=== PATIENT | female | born 1950 | race Caucasian/White ===

== ENCOUNTER 2020-01-08 11:42 | Outpatient (CLI) | payer MEDICARE, SELFPAY ==
[2020-01-08 12:32] LABS: Alanine Aminotransferase 47 U/L (4-35); Albumin Level 3.9 g/dL (3.5-5.1); Alkaline Phosphatase 56 U/L (38-126); Aspartate Amino Transferase 40 U/L (14-36); Bilirubin,Total 0.6 mg/dL (0.2-1.3); Blood Urea Nitrogen 16 mg/dL (7-17); Calcium 9.1 mg/dL (8.4-10.2); Carbon Dioxide 30 mmol/L (22-30); Chloride 101 mmol/L (98-107); Cholesterol 179 mg/dL (0-200); Estimated Glomerular Filt Rate > 60; Glucose 111 mg/dL (65-105); HDL Direct 53 mg/dL; Potassium 3.7 mmol/L (3.4-5.0); Sodium 139 mmol/L (137-145); Triglycerides 173 mg/dL (<150)
[2020-01-08 12:33] LABS: Hemoglobin A1C 6.4 % (<5.7)
[2020-01-08 12:43] LABS: LDL Cholesterol Direct 83 mg/dL
[2020-01-08 12:45] LABS: Iron 54 ug/dL (37-170)
[2020-01-08 12:54] LABS: Percent Iron Saturation 14 % (20-50)
== END 2020-01-08 11:43 | disposition home or self-care (01) ==
PROVIDERS: PCP Internal Medicine; Visit Provider Internal Medicine
DX: I10 Essential (primary) hypertension (principal); R73.09 Other abnormal glucose; Z79.899 Other long term (current) drug therapy; R79.0 Abnormal level of blood mineral; E78.2 Mixed hyperlipidemia; E03.9 Hypothyroidism, unspecified
CPT/HCPCS: 36415; 80053; 80061; 83036; 83540; 83550; 84443

== ENCOUNTER 2020-12-12 15:23 | Outpatient (CLI) | payer MEDICARE, SELFPAY ==
[2020-12-12 15:55] LABS: Alanine Aminotransferase 48 U/L (4-35); Alkaline Phosphatase 57 U/L (38-126); Anion Gap 7 mmol/L (8-16); Aspartate Amino Transferase 45 U/L (14-36); Bilirubin,Total 0.8 mg/dL (0.2-1.3); Blood Urea Nitrogen 18 mg/dL (7-17); Calcium 9.1 mg/dL (8.4-10.2); Carbon Dioxide 28 mmol/L (22-30); Chloride 104 mmol/L (98-107); Cholesterol 160 mg/dL (0-200); Estimated Glomerular Filt Rate > 60; Glucose 130 mg/dL (65-105); HDL Direct 59 mg/dL; Potassium 3.9 mmol/L (3.4-5.0); Sodium 139 mmol/L (137-145); Triglycerides 134 mg/dL (<150)
[2020-12-12 15:59] LABS: Hemoglobin A1C 6.6 % (<5.7)
[2020-12-12 16:06] LABS: LDL Cholesterol Direct 70 mg/dL
[2020-12-12 16:48] LABS: Free T4 Free Thyroxine 1.22 ng/mL (0.78-2.19)
== END 2020-12-12 15:24 | disposition home or self-care (01) ==
LOC: ANHLAB 15:25
PROVIDERS: Family Provider Internal Medicine; PCP Internal Medicine; Visit Provider Nurse Practitioner
DX: E78.5 Hyperlipidemia, unspecified (principal); E03.9 Hypothyroidism, unspecified; R73.03 Prediabetes
CPT/HCPCS: 36415; 80053; 80061; 83036; 84439; 84443

== ENCOUNTER 2021-04-20 13:29 | Emergency (ER) | payer MEDICARE, SELFPAY ==
[2021-04-20 13:41] VITALS: BP 112/60; PULSE 86; RESP 20; TEMP 37.3; O2SAT 99
--- NOTE | 2021-04-20 14:17 | ED.GENADULT ---
HPI - General Adult General Chief complaint: Extremity Problem,Nontraumatic Stated complaint: Rt ankle Source: patient Mode of arrival: ambulatory Limitations: no limitations History of Present Illness HPI narrative: Patient presents for evaluation of right lower extremity pain for the last 3 weeks. She indicates she was sitting in a chair with her legs crossed when she noted pain and bruising in right ankle. She cannot identify any specific trauma to the affected area. However she does state that she has been moving recently and may have injured herself without being cognizant of that. The course last week she has felt pain radiating up the posterior aspect of the right lower extremity. Of note she states that she has a history of a DVT which was identified when she was hospitalized for a lung transplant at [facility] approximately 7 years ago. Unfortunately she is unsure of which leg the clot is in. She has experienced some shortness of breath as of late but states she is planning on speaking with her physical therapy instructor this coming week about that. She reports a history of cardiac ablation, which sounds as though was performed due to atrial fibrillation. She states that pain in the right ankle is rated 7 out of 10 in severity and pain in the posterior aspect of the calf and thigh is 3/10. Currently anticoagulated with Eliquis and states she is compliant with therapy. She denies any chest pain or cough. Related Data Home Medications Medication Instructions Recorded Confirmed apixaban 5 mg tablet 5 mg PO BID 11/03/19 04/20/21 azathioprine 50 mg tablet 150 mg PO DAILY 11/03/19 04/20/21 calcium carbonate 600 mg calcium 600 mg PO DAILY 11/03/19 04/20/21 (1,500 mg) tablet cholecalciferol (vitamin D3) 50 2,000 unit PO DAILY 11/03/19 04/20/21 mcg (2,000 unit) tablet omeprazole 20 mg capsule,delayed 20 mg PO DAILY 11/03/19 04/20/21 release paroxetine mesylate 10 mg tablet 10 mg PO DAILY 11/03/19 04/20/21 prednisone 10 mg tablet 10 mg PO DAILY 11/03/19 04/20/21 aspirin 81 mg tablet,delayed 81 mg PO DAILY 12/05/20 04/20/21 release tacrolimus 1 mg capsule, 1 mg PO TID cap 12/05/20 04/20/21 immediate-release Allergies Allergy/AdvReac Type Severity Reaction Status Date / Time SANDRA Inhibitors Allergy Unknown Unknown Verified 06/11/20 13:57 hydrochlorothiazide Allergy Unknown Unknown Verified 06/11/20 13:57 lisinopril Allergy Unknown Unknown Verified 06/11/20 13:57 vancomycin Allergy Unknown Unknown Verified 06/11/20 13:57 Review of Systems Review of Systems: Narrative: CONSTITUTIONAL: Denies fever, chills, or sweats. EYES: Denies visual changes, redness, or discharge. ENT: Denies rhinorrhea, congestion, sore throat, or otalgia. CARDIOVASCULAR: Denies chest pain, palpitations, or edema. RESPIRATORY: Shortness of breath. Denies cough. GASTROINTESTINAL: Denies abdominal pain, nausea, vomiting, or diarrhea. GENITOURINARY: Denies dysuria or hematuria. SKIN: Reports bruising to the right ankle denies rash or itching. MUSCULOSKELETAL: Reports pain in the right ankle. Reports pain in right calf and posterior aspect of right thigh. Denies back pain NEUROLOGIC: Denies headache, numbness, dizziness, or weakness. PSYCHIATRIC: Denies anxiety or depression. [facility] Past Medical History Medical History Atrial flutter Essential (primary) hypertension Glaucoma of both eyes Irritable bowel syndrome with diarrhea Mixed hyperlipidemia Neurofibromatosis BHAVANA (obstructive sleep apnea) Polycythemia Prediabetes Surgical History Surgical History H/O cardiac radiofrequency ablation Hx of lung transplant S/P coronary artery stent placement Family History Family History Father Family history of chronic obstructive pulmonary disease Acute myocardial infarction Family hist
--- NOTE | 2021-04-20 14:20 | PC.NURSE ---
Sean Toribio spoke with Dr Love for transfer appropriate paperworked fransico
== END 2021-04-20 14:21 | disposition short-term general hospital (02) ==
LOC: EXPTROY 13:33
PROVIDERS: Emergency Provider Nurse Practitioner; PCP Internal Medicine
DX: M79.661 Pain in right lower leg (principal); Z86.718 Personal history of other venous thrombosis and embolism; I48.91 Unspecified atrial fibrillation; I10 Essential (primary) hypertension; H40.9 Unspecified glaucoma; E78.2 Mixed hyperlipidemia; G47.33 Obstructive sleep apnea (adult) (pediatric); R73.03 Prediabetes; Z95.5 Presence of coronary angioplasty implant and graft; Z94.2 Lung transplant status; Z85.848 Personal history of malignant neoplasm of other parts of nervous tissue; Z79.82 Long term (current) use of aspirin
CPT/HCPCS: 99212; G0463

== ENCOUNTER 2021-04-20 14:37 | Emergency (ER) | payer MEDICARE, SELFPAY ==
--- NOTE | ~2021-04-20 | XR_ITS ---
XR ankle RT min 3V DATE: 04/20/2021 17:28 INDICATION: Pain and bruising medial aspect of ankle. No known injury. TECHNIQUE: 4 views COMPARISON: None FINDINGS: There is mild soft tissue swelling of the ankle laterally. No fracture or dislocation of th e ankle or disruption of the ankle mortise is detected. IMPRESSION: Mild lateral soft tissue swelling Reviewed, dictated and finalized at location A.
--- NOTE | ~2021-04-20 | US_ITS ---
US venous doppler LE RT DATE: 04/20/2021 15:18 INDICATION: Pain and bruising of right lower extremity TECHNIQUE: Real-time and color flow imaging and Doppler analysis of the veins of the right lower extr emity COMPARISON: 09/10/2010 bilateral lower extremity venous duplex examination FINDINGS: The right greater saphenous vein is patent. There is spontaneous and phasic flow and normal augmentation and color flow signal and normal compression of the deep veins of the right lower extre mity. IMPRESSION: No evidence of deep venous thrombosis of right lower extremity Reviewed, dictated and finalized at Location A. Reviewed, dictated and finalized at location A.
[2021-04-20 14:44] VITALS: BP 119/68; PULSE 93; RESP 18; TEMP 36.3; O2SAT 99
[2021-04-20] MEDS: ACETAMINOPHEN 500 MG TABLET 1000 MG PO (17:01)
--- NOTE | 2021-04-20 17:35 | ED.LOWEXIN ---
HPI - Extremity Injury (Lower) General Chief Complaint: Extremity Injury, Lower Stated Complaint: right ankle pain Time Seen by Provider: 04/20/21 16:03 Source: patient Mode of arrival: ambulatory Limitations: no limitations History of Present Illness HPI Narrative: Patient is a 70-year-old female who presents complaining of right ankle pain. Patient reports bruising and swelling to right ankle for the past 2 to 3 weeks. She reports increased pain with ambulation. She reports pain radiates from ankle to thigh. She denies all other complaints. Reports taking [id number]-zewhatm medications with limited relief. She does report that her recently passed and she has been moving lots of stuff . Patient reports she could have hit or injured ankle at some point. Related Data Home Medications Medication Instructions Recorded Confirmed apixaban 5 mg tablet 5 mg PO BID 11/03/19 04/20/21 azathioprine 50 mg tablet 150 mg PO DAILY 11/03/19 04/20/21 calcium carbonate 600 mg calcium 600 mg PO DAILY 11/03/19 04/20/21 (1,500 mg) tablet cholecalciferol (vitamin D3) 50 2,000 unit PO DAILY 11/03/19 04/20/21 mcg (2,000 unit) tablet omeprazole 20 mg capsule,delayed 20 mg PO DAILY 11/03/19 04/20/21 release paroxetine mesylate 10 mg tablet 10 mg PO DAILY 11/03/19 04/20/21 prednisone 10 mg tablet 10 mg PO DAILY 11/03/19 04/20/21 aspirin 81 mg tablet,delayed 81 mg PO DAILY 12/05/20 04/20/21 release tacrolimus 1 mg capsule, 1 mg PO TID cap 12/05/20 04/20/21 immediate-release Allergies Allergy/AdvReac Type Severity Reaction Status Date / Time SANDRA Inhibitors Allergy Unknown Unknown Verified 06/11/20 13:57 hydrochlorothiazide Allergy Unknown Unknown Verified 06/11/20 13:57 lisinopril Allergy Unknown Unknown Verified 06/11/20 13:57 vancomycin Allergy Unknown Unknown Verified 06/11/20 13:57 Review of Systems Review of Systems: Narrative: CONSTITUTIONAL: Denies fever, chills, or sweats. EYES: Denies visual changes, redness, or discharge. ENT: Denies rhinorrhea, congestion, sore throat, or otalgia. CARDIOVASCULAR: Denies chest pain, palpitations, or edema. RESPIRATORY: Denies cough or dyspnea. GASTROINTESTINAL: Denies abdominal pain, nausea, vomiting, or diarrhea. GENITOURINARY: Denies dysuria or hematuria. SKIN: Denies rash or itching. MUSCULOSKELETAL: Reports right ankle pain NEUROLOGIC: Denies headache, numbness, dizziness, or weakness. PSYCHIATRIC: Denies anxiety or depression. [facility] Past Medical History Medical History Atrial flutter Essential (primary) hypertension Glaucoma of both eyes Irritable bowel syndrome with diarrhea Mixed hyperlipidemia Neurofibromatosis BHAVANA (obstructive sleep apnea) Polycythemia Prediabetes Surgical History Surgical History H/O cardiac radiofrequency ablation Hx of lung transplant S/P coronary artery stent placement Family History Family History Father Family history of chronic obstructive pulmonary disease Acute myocardial infarction Family history of heart disease in male family member before age 55 Mother Family history of coronary artery disease Cerebrovascular accident Other Diabetes mellitus Familial primary pulmonary hypertension Family history of arthritis Family history of blood dyscrasia Family history of cardiovascular disease Family history of malignant neoplasm Hypertension Social History Social History (Updated 04/20/21 @ 17:38 by IVORY Nuñez) Smoking status: Never smoker Alcohol intake: never Substance use: never Occupation/Education: retired Gender identity (if verbalized by the patient): Female Comments At the time of signature, I have reviewed and agree with nursing past medical, surgical, social, and family history unless otherwise noted. Please see nursing ch
== END 2021-04-20 17:57 | disposition home or self-care (01) ==
PROVIDERS: Emergency Provider Nurse Practitioner; PCP Internal Medicine
DX: S93.401A Sprain of unspecified ligament of right ankle, initial encounter (principal); I48.92 Unspecified atrial flutter; I10 Essential (primary) hypertension; H40.9 Unspecified glaucoma; K58.0 Irritable bowel syndrome with diarrhea; E78.2 Mixed hyperlipidemia; G47.33 Obstructive sleep apnea (adult) (pediatric); R73.03 Prediabetes; Z94.2 Lung transplant status; Z95.5 Presence of coronary angioplasty implant and graft; Z79.01 Long term (current) use of anticoagulants; Z79.82 Long term (current) use of aspirin; M79.604 Pain in right leg; X58.XXXA Exposure to other specified factors, initial encounter
CPT/HCPCS: 73610; 93971; 99284; A9270

== ENCOUNTER 2021-05-09 09:25 | Outpatient (CLI) | payer MEDICARE, SELFPAY ==
--- NOTE | ~2021-05-09 | CT_ITS ---
EXAMINATION: CT ankle RT wo con DATE: 05/09/2021 09:05 INDICATION: Right ankle pain TECHNIQUE: High resolution computed tomography (CT) of the right ankle was performed without intraven ous contrast. Additional sagittal and coronal reconstructions were performed. The dose-length product was 374.02 mGy-cm. COMPARISON: None FINDINGS: Bone alignment is normal. No fracture. Normal variant type II os naviculare. Mild osteoarthritis at t he posterior facet of the subtalar joint. Fusiform thickening of the right peroneus longus and brevis tendons centered at the level of the retromalleolar groove. No joint effusions or other abnormal flu id collections identified. There are multiple cutaneous nodules scattered throughout the visualized f oot, ankle and more subtly at the lower calf suggesting neurofibromatosis. IMPRESSION: 1. Mild osteoarthritis at the posterior facet of the right subtalar joint. No acute osseous abnormali ty. 2. Mild tendinopathy of the peroneus longus and brevis tendons. 3. Numerous scattered cutaneous nodules consistent with neurofibromatosis. Reviewed, dictated and finalized at location A. IMPRESSION: 1. Mild osteoarthritis at the posterior facet of the right subtalar joint. No a cute osseous abnormality. 2. Mild tendinopathy of the peroneus longus and brevis tendons. 3. Numerous scattered cutaneous nodules consistent with neurofibromatosis.
[2021-05-15 21:16] LABS: EBV Nuclear Ab Interpretation Recent; EBV Virus Capsid Ag IgG Ab >750.00 U/mL (<18.00)
== END 2021-05-09 09:26 | disposition home or self-care (01) ==
PROVIDERS: PCP Internal Medicine; Visit Provider Nurse Practitioner
DX: R22.41 Localized swelling, mass and lump, right lower limb (principal); R53.82 Chronic fatigue, unspecified; M19.071 Primary osteoarthritis, right ankle and foot; M76.71 Peroneal tendinitis, right leg
CPT/HCPCS: 36415; 73700; 86664; 86665

== ENCOUNTER → 2021-11-04 08:49 | Outpatient (CLI) | payer MEDICARE, SELFPAY ==
[2021-11-05 12:29] LABS: Influenza Control Positive
[2021-11-05 19:40] LABS: SARS-CoV-2 RNA PCR Negative
== END ==
PROVIDERS: PCP Internal Medicine; Visit Provider Internal Medicine
DX: R09.89 Other specified symptoms and signs involving the circulatory and respiratory systems (principal); Z20.822 Contact with and (suspected) exposure to COVID-19
CPT/HCPCS: 87804; C9803; U0003; U0005

== ENCOUNTER 2021-11-24 18:43 | Outpatient (CLI) | payer MEDICARE, SELFPAY ==
--- NOTE | ~2021-11-24 | XR_ITS ---
EXAMINATION: XR chest 2V DATE: 11/24/2021 19:06 INDICATION: Acute upper respiratory infection, unspecified. Cough. TECHNIQUE: Frontal and lateral views of the chest were obtained. COMPARISON: Chest single view 09/06/2019 FINDINGS: There is a chronic small right pleural effusion. There are mild airspace opacities in right mid and lower lung zones. No pneumothorax. The heart size is normal. There are transverse sternotomy wires from prior bilateral lung transplant. Surgical clips in the right upper quadrant are likely fr om cholecystectomy. IMPRESSION: 1. Chronic small right pleural effusion. 2. Stable mild airspace opacities in right mid and lower lung zones, consistent with atelectasis/scar ring or less likely pneumonia. Reviewed, dictated and finalized at location B. [employer]ACHINE OPERATOR IMPRESSION: 1. Chronic small right pleural effusion. 2. Stable mild airspace opacities in right mid and lower lung zones, consistent with atelectasis/scarring or less likely pneumonia.
== END 2021-11-24 18:44 | disposition home or self-care (01) ==
PROVIDERS: PCP Internal Medicine; Visit Provider Internal Medicine
DX: J06.9 Acute upper respiratory infection, unspecified (principal); J90 Pleural effusion, not elsewhere classified; R91.8 Other nonspecific abnormal finding of lung field
CPT/HCPCS: 71046

== ENCOUNTER → 2021-12-25 11:43 | Outpatient (REF) | payer MEDICARE, SELFPAY | LOC: ANHLAB 11:43 | PROVIDERS: PCP Internal Medicine; Visit Provider Nurse Practitioner | DX: D36.10 Benign neoplasm of peripheral nerves and autonomic nervous system, unspecified (principal) | CPT/HCPCS: 88305 ==

== ENCOUNTER 2021-12-25 12:56 | Outpatient (CLI) | payer MEDICARE, SELFPAY ==
[2021-12-25 13:35] LABS: Alanine Aminotransferase 49 U/L (4-35); Albumin Level 4.2 g/dL (3.5-5.1); Alkaline Phosphatase 61 U/L (38-126); Anion Gap 10 mmol/L (8-16); Aspartate Amino Transferase 56 U/L (14-36); Blood Urea Nitrogen 14 mg/dL (7-17); Calcium 9.4 mg/dL (8.4-10.2); Carbon Dioxide 24 mmol/L (22-30); Chloride 100 mmol/L (98-107); Cholesterol 186 mg/dL (0-200); Estimated Glomerular Filt Rate > 60; Glucose 208 mg/dL (65-110); HDL Direct 56 mg/dL; Potassium 3.3 mmol/L (3.4-5.0); Sodium 134 mmol/L (137-145); Triglycerides 159 mg/dL (<150)
[2021-12-25 13:38] LABS: Hemoglobin A1C 6.6 % (<5.7)
[2021-12-25 13:46] LABS: LDL Cholesterol Direct 91 mg/dL
== END 2021-12-25 12:57 | disposition home or self-care (01) ==
LOC: ANHLAB 12:57
PROVIDERS: PCP Internal Medicine; Visit Provider Internal Medicine
DX: E03.9 Hypothyroidism, unspecified (principal); E11.9 Type 2 diabetes mellitus without complications; I10 Essential (primary) hypertension; E78.5 Hyperlipidemia, unspecified
CPT/HCPCS: 36415; 80053; 80061; 83036; 84443; 88305

== ENCOUNTER 2022-01-30 11:02 | Outpatient (CLI) | payer MEDICARE, SELFPAY ==
[2022-01-30 11:49] LABS: Add Urine Microscopic? YES; Appearance Urine Cloudy (Clear); Bilirubin Urine Negative (Negative); Blood Urine 1+ (Negative); Color Urine Yellow (Yellow); Glucose Urine UA Negative (Negative); Ketones Urine Negative (Negative); Leukocyte Esterase Ur Trace LEU/UL (Negative); Mucus Urine Rare /lpf; Nitrate Urine Positive (Negative); Protein Urine Negative (Negative); Specific Grav Ur 1.014 (1.001-1.035); Squamous Epithelial Cell Urine Rare /hpf (Few); Urobilinogen Urine Negative mg/dL (<2.0)
[2022-01-30 11:54] LABS: Anion Gap 6 mmol/L (8-16); Blood Urea Nitrogen 18 mg/dL (7-17); Calcium 8.8 mg/dL (8.4-10.2); Carbon Dioxide 31 mmol/L (22-30); Chloride 100 mmol/L (98-107); Estimated Glomerular Filt Rate > 60; Glucose 106 mg/dL (65-110); Potassium 3.8 mmol/L (3.4-5.0); Sodium 137 mmol/L (137-145)
[2022-02-04 09:35] LABS: Testosterone Total 39 ng/dL (2-45)
== END 2022-01-30 11:03 | disposition home or self-care (01) ==
PROVIDERS: PCP Internal Medicine; Visit Provider Nurse Practitioner
DX: E87.6 Hypokalemia (principal); R30.0 Dysuria; L68.0 Hirsutism
CPT/HCPCS: 36415; 80048; 81001; 84403; 87077; 87086; 87186

== ENCOUNTER 2022-02-23 17:47 | Outpatient (CLI) | payer MEDICARE, SELFPAY ==
[2022-02-23 19:20] LABS: Bacteria Urine Trace /hpf; Mucus Urine Moderate /lpf; Squamous Epithelial Cell Urine Few /hpf (Few); WBC Urine 31-50 /hpf
[2022-02-23 19:22] LABS: Appearance Urine Sl Cloudy (Clear); Color Urine Yellow (Yellow)
[2022-02-23 19:23] LABS: Blood Urine Trace-Intact (Negative); Glucose Urine UA Negative (Negative); Ketones Urine Negative (Negative); Protein Urine Trace mg/dL (Negative); Specific Grav Ur >= 1.030 (1.001-1.035)
[2022-02-23 19:24] LABS: Add Urine Microscopic? YES; Bilirubin Urine 1+ (Negative); Leukocyte Esterase Ur Trace LEU/UL (Negative); Nitrate Urine Negative (Negative); Urobilinogen Urine 0.2 mg/dL (<2.0)
== END 2022-02-23 17:48 | disposition home or self-care (01) ==
LOC: ANHLAB 17:48
PROVIDERS: PCP Internal Medicine; Visit Provider Nurse Practitioner
DX: N39.0 Urinary tract infection, site not specified (principal)
CPT/HCPCS: 81001; 87086; 87088

== ENCOUNTER 2022-02-26 13:33 | Outpatient (CLI) | payer MEDICARE, SELFPAY | END 2022-02-26 13:34 | disposition home or self-care (01) | PROVIDERS: PCP Internal Medicine; Visit Provider Nurse Practitioner | DX: N39.0 Urinary tract infection, site not specified (principal) | CPT/HCPCS: 87086; 87088 ==

== ENCOUNTER 2022-09-18 10:53 | Outpatient (CLI) | payer MEDICARE, SELFPAY ==
[2022-09-18 11:37] LABS: Alanine Aminotransferase 15 U/L (6-35); Albumin Level 4.1 g/dL (3.5-5.1); Alkaline Phosphatase 74 U/L (38-126); Anion Gap 10 mmol/L (8-16); Aspartate Amino Transferase 24 U/L (14-36); Bilirubin,Total 0.6 mg/dL (0.2-1.3); Blood Urea Nitrogen 16 mg/dL (7-17); Calcium 9.1 mg/dL (8.4-10.2); Carbon Dioxide 24 mmol/L (22-30); Chloride 102 mmol/L (98-107); Cholesterol 217 mg/dL (0-200); Estimated Glomerular Filt Rate > 60; Glucose 101 mg/dL (65-110); HDL Direct 66 mg/dL; Potassium 4.1 mmol/L (3.4-5.0); Sodium 136 mmol/L (137-145); Triglycerides 195 mg/dL (<150)
[2022-09-18 11:48] LABS: LDL Cholesterol Direct 94 mg/dL
[2022-09-18 11:49] LABS: Hemoglobin A1C 6.3 % (<5.7)
== END 2022-09-18 10:54 | disposition home or self-care (01) ==
PROVIDERS: PCP Internal Medicine; Visit Provider Internal Medicine
DX: E78.5 Hyperlipidemia, unspecified (principal); E11.9 Type 2 diabetes mellitus without complications; I10 Essential (primary) hypertension; E03.9 Hypothyroidism, unspecified
CPT/HCPCS: 36415; 80053; 80061; 83036; 84443

== ENCOUNTER 2023-05-20 10:55 | Outpatient (CLI) | payer MEDICARE, SELFPAY ==
[2023-05-20 11:39] LABS: Alanine Aminotransferase 18 U/L (6-35); Albumin Level 4.1 g/dL (3.5-5.1); Alkaline Phosphatase 83 U/L (38-126); Anion Gap 3 mmol/L (8-16); Aspartate Amino Transferase 19 U/L (14-36); Bilirubin,Total 0.5 mg/dL (0.2-1.3); Blood Urea Nitrogen 14 mg/dL (7-17); Calcium 9.2 mg/dL (8.4-10.2); Carbon Dioxide 34 mmol/L (22-30); Chloride 102 mmol/L (98-107); Cholesterol 167 mg/dL (0-200); Estimated Glomerular Filt Rate > 60; Glucose 129 mg/dL (65-110); HDL Direct 58 mg/dL; Potassium 4.5 mmol/L (3.4-5.0); Sodium 139 mmol/L (137-145); Triglycerides 149 mg/dL (<150)
[2023-05-20 11:47] LABS: Hemoglobin A1C 5.6 % (<5.7)
[2023-05-20 11:50] LABS: LDL Cholesterol Direct 69 mg/dL
== END 2023-05-20 10:56 | disposition home or self-care (01) ==
PROVIDERS: PCP Family Medicine; Visit Provider Nurse Practitioner
DX: E78.2 Mixed hyperlipidemia (principal); Z79.899 Other long term (current) drug therapy; E11.9 Type 2 diabetes mellitus without complications; E78.5 Hyperlipidemia, unspecified; E03.9 Hypothyroidism, unspecified
CPT/HCPCS: 36415; 80053; 80061; 83036; 84443

== ENCOUNTER 2023-09-05 11:21 | Inpatient (IN) | payer MEDICARE, SELFPAY ==
[2023-09-05] VITALS (31 sets, daily range): BP systolic 110–180; BP diastolic 66–82; PULSE 80–105; RESP 12–22; TEMP 32.7–37.6; O2SAT 96–100; BMI 22.4
--- NOTE | ~2023-09-05 | XR_ITS ---
XR chest 1V portable 09/05/2023 12:16 Indication: Altered mental status Procedure: AP portable chest Comparison: Comparison to multiple prior studies sequentially, with oldest reviewed study dated 01/2019. Findings: Small right pleural effusion. Shallow inspiration. There are sternotomy wires. Mild cardiom egaly. No acute osseous abnormality. Impression: 1: Small right pleural effusion. Reviewed, dictated and finalized at location A. Impression: 1: Small right pleural effusion.
--- NOTE | ~2023-09-05 | MR_ITS ---
EXAMINATION: MR brain/brain stem wo/w con DATE: 09/07/2023 12:10 INDICATION: Altered mental status and choking on water. TECHNIQUE: Magnetic resonance imaging (MRI) of the brain and brainstem was performed without and with 11 mL Multihance intravenous contrast. Sequences included sagittal and axial T1-weighted SE, axial d iffusion-weighted FS SE, axial 3D SWAN, axial T2*-weighted GRE, axial T2-weighted FLAIR, and axial T2 -weighted FSE. Postcontrast axial and coronal T1-weighted SE was obtained. Apparent diffusion coeffic ient (ADC) maps were created. COMPARISON: Head CT dated 09/05/2023 and brain MR dated 09/24/2018 FINDINGS: Small focus of T2 shine through on the diffusion-weighted imaging associated with a small old lacunar infarct in the right peritrigonal white matter. There are no areas of restricted diffusion to sugges t acute infarction. There are couple additional small old lacunar infarcts in the right subinsular wh ite matter and one in the left frontal lobe periventricular white matter. No intracranial hemorrhage, abnormal intracranial mass lesion or abnormally enhancing intracranial lesions. There are scattered areas of nonspecific increased T2-weighted signal intensity in the cerebral white matter, predominant ly involving the deep and periventricular white matter which is within normal limits for age. There a re no intraparenchymal signal abnormalities seen on the other pulse sequences. The ventricles are sym metric and normal in size. There are no abnormal extra-axial fluid collections. Flow voids are seen i n the cerebral arteries on the T2-weighted sequences consistent with their expected patency. Mild muc osal thickening in the bilateral ethmoid sinuses. Changes of bilateral intraocular lens replacement. Visualized orbits and soft tissues are unremarkable. There are multiple enhancing nodules along the s calp and face suggestive of neurofibromatosis. IMPRESSION: 1. A few old lacunar infarcts in the left and right cerebral white matter. No acute intracranial proc ess or abnormally enhancing brain lesions. 2. Moderate scattered periventricular predominant white matter T2 hyperintensity which is within norm al limits for age and likely sequela of chronic small vessel ischemic disease. 3. Scattered skin nodules consistent with neurofibromatosis. Reviewed, dictated and finalized at location A. IMPRESSION: 1. A few old lacunar infarcts in the left and right cerebral white matter. No a cute intracranial process or abnormally enhancing brain lesions. 2. Moderate scattered periventricular predominant white matter T2 hyperintensit y which is within normal limits for age and likely sequela of chronic small ves mario ischemic disease. 3. Scattered skin nodules consistent with neurofibromatosis.
--- NOTE | ~2023-09-05 | CT_ITS ---
EXAMINATION: CT brain wo con DATE: 09/05/2023 12:30 INDICATION: Altered mental status TECHNIQUE: Computed tomography (CT) of the head was performed without intravenous contrast. The dose- length product was 605.33 mGy-cm. Automated exposure control and iterative reconstruction technique w ere employed. COMPARISON: None FINDINGS: Chronic bilateral lacunar infarctions. There is left frontal scalp hematoma. Generalized at rophy. There are scattered mild periventricular and subcortical white matter changes, most likely rel ated to small vessel ischemic disease (microangiopathy). No ventriculomegaly or midline shift. No dep ressed skull fractures. No acute infarction, hemorrhage, mass or mass effect. Midline sagittal images are unremarkable. Paranasal sinuses and mastoids are pneumatized. IMPRESSION: 1. No acute intracranial abnormality. 2: Chronic bilateral lacunar infarctions. 3: Chronic age-related findings. Reviewed, dictated and finalized at location A.
--- NOTE | ~2023-09-05 | XR_ITS ---
XR abdomen gastric tube rechec INDICATION: Evaluate NG tube position. TECHNIQUE: Limited KUB perform for evaluating NG tube . COMPARISON: No prior studies for comparison. FINDINGS: NG tube tip in the stomach. Visualized bowel gas pattern is unremarkable.There is a right pleural effusion. IMPRESSION: 1: NG tube tip in the stomach. Reviewed, dictated and finalized at location B.
--- NOTE | ~2023-09-05 | XR_ITS ---
EXAMINATION: XR abdomen gastric tube insert DATE: 09/06/2023 14:29 INDICATION: Nasogastric tube placement TECHNIQUE: AP view of the chest and abdomen was obtained for evaluation of feeding tube placement. COMPARISON: Chest radiograph dated 09/05/2023 and 11/24/2021 FINDINGS: Nasogastric tube with proximal side-port in the body the stomach and distal tip in the right upper qu adrant and in the distal stomach or proximal duodenum. No dilated loops of gas-filled bowel to sugges t obstruction. Unchanged opacity posterior to the right hemidiaphragm and extending along the lateral mid to lower right hemithorax and over the right apex consistent with a chronic small right pleural effusion. Mild streaky right basilar atelectasis. Left lung remains clear. There is chronic volume lo ss the right hemithorax with rightward deviation of the trachea. Transverse sternotomy wires are pres ent suggesting prior lung transplant. Cholecystectomy clips in right upper quadrant. IMPRESSION: 1. Nasogastric tube extends into stomach with distal tip either in the distal stomach or proximal duo denum. Consider withdrawal by 8 cm. 2. Changes consistent with prior lung transplantation with stable appearance of a chronic small right pleural effusion. Reviewed, dictated and finalized at location A. IMPRESSION: 1. Nasogastric tube extends into stomach with distal tip either in the distal s tomach or proximal duodenum. Consider withdrawal by 8 cm. 2. Changes consistent with prior lung transplantation with stable appearance of a chronic small right pleural effusion.
--- NOTE | 2023-09-05 11:26 | ECG_ITS ---
Measurements Intervals [place] Rate: 101 P: -89 MN: 82 QRS: 45 QRSD: 98 T: 239 QT: 354 QTc: 460 Interpretive Statements JUNCTIONAL TACHYCARDIA NONSPECIFIC ST AND T-WAVE ABNORMALITY ABNORMAL ECG NO PREVIOUS ECG AVAILABLE FOR COMPARISON Electronically Signed On 09-06-2023 7:00:34 CDT by Grabiel Martines M.D.
[2023-09-05 11:39] LABS: Basophils Absolute Auto 0.1 K/mm3 (0.0-0.1); Basophils Percent Auto 0.8 % (0.2-1.2); Eosinophils Percent Auto 0.1 % (0-4.4); Hematocrit 60.2 % (37.0-47.0); Hemoglobin 18.6 g/dL (12.0-15.0); Immature Granulocyte Absolute 0.09 K/mm3 (0.00-0.031); Immature Granulocyte Percent A 0.9 % (0-0.5); Lymphocytes Absolute Auto 1.13 K/mm3 (0.9-3.2); Lymphocytes Percent Auto 10.9 % (18.3-44.2); Mean Corpuscular HGB Conc 30.9 g/dl (32-36); Mean Corpuscular Hemoglobin 25.8 pg (26-34); Mean Corpuscular Volume 83.6 fl (80-100); Mean Platelet Volume 12.2 fl (7.4-10.4); Monocytes Absolute Auto 1.8 K/mm3 (0.1-0.6); Monocytes Percent Auto 17.1 % (2.6-8.5); Neutrophils Absolute Auto 7.3 K/mm3 (1.3-6.7); Neutrophils Percent Auto 70.2 % (45.5-73.1); Nucleated Red Blood Cells Absolute Auto 0.1 K/mm3 (0.0-0.012); Nucleated Red Blood Cells Perc 1.1 % (0.0-0.2); Platelet Count Result 191 k/mm3 (150-375); Red Cell Distribution Width 19.2 % (11.5-14.5); White Blood Count 10.3 K/mm3 (4.5-10.0)
[2023-09-05 11:50] LABS: INR 1.1; Partial Thromboplastin Time 26.8 SECONDS (22.3-36.8); Prothrombin Time 14.4 Seconds (11.1-14.7)
[2023-09-05 11:56] LABS: Alanine Aminotransferase 26 U/L (6-35); Albumin Level 4.2 g/dL (3.5-5.1); Alkaline Phosphatase 84 U/L (38-126); Anion Gap 19 mmol/L (8-16); Aspartate Amino Transferase 35 U/L (14-36); Bilirubin,Total 1.9 mg/dL (0.2-1.3); Blood Urea Nitrogen 97 mg/dL (7-17); Calcium 9.6 mg/dL (8.4-10.2); Carbon Dioxide 31 mmol/L (22-30); Chloride 106 mmol/L (98-107); Creatine Kinase < 20 U/L (30-135); Estimated CRCL calculation 12 ml/min; Estimated Glomerular Filt Rate 15; Glucose 129 mg/dL (65-110); Potassium 3.6 mmol/L (3.4-5.0); Sodium 156 mmol/L (137-145)
--- NOTE | 2023-09-05 11:56 | ED.GENADULT ---
HPI - General Adult General Chief complaint: Altered Mental Status Stated complaint: found semi-conscious History of Present Illness HPI narrative: Patient is a 72-year-old female who presents ER after being found semiconscious at her home. She was covered in urine and stool. Her pet dog was found in the hallway. Patient's sister had not heard from her and called for a wellness check and police had to forcibly enter the home. Patient is unable to provide history. Patient's PCP note from 05/2023 reviewed. Patient is able to move all extremities at his nonverbal at this time. Related Data Home Medications Medication Instructions Recorded Confirmed azathioprine 50 mg tablet 50 mg PO DAILY 11/03/19 09/05/23 calcium carbonate 600 mg calcium 600 mg PO DAILY 11/03/19 09/05/23 (1,500 mg) tablet (Calcium) cholecalciferol (vitamin D3) 50 2,000 unit PO DAILY 11/03/19 09/05/23 mcg (2,000 unit) tablet prednisone 10 mg tablet 10 mg PO DAILY 11/03/19 09/05/23 aspirin 81 mg tablet,delayed 81 mg PO DAILY 12/05/20 09/05/23 release (Adult Aspirin Regimen) tacrolimus 1 mg capsule, 1 mg PO Q12H 12/05/20 09/05/23 immediate-release acyclovir 200 mg capsule 200 mg PO BID 06/04/23 09/05/23 amlodipine 10 mg tablet 10 mg PO DAILY 09/05/23 09/05/23 atorvastatin 80 mg tablet 80 mg PO HS 09/05/23 09/05/23 azithromycin 500 mg tablet 500 mg PO 3XW 09/05/23 09/05/23 bupropion HCl 150 mg 24 hr tablet, 150 mg PO DAILY 09/05/23 09/05/23 extended release irbesartan 150 mg tablet 150 mg PO DAILY 09/05/23 09/05/23 levothyroxine 100 mcg tablet 100 mcg PO 0600 09/05/23 09/05/23 omeprazole 20 mg capsule,delayed 20 mg PO DAILY 09/05/23 09/05/23 release paroxetine HCl 20 mg tablet 20 mg PO DAILY 09/05/23 09/05/23 Allergies Allergy/AdvReac Type Severity Reaction Status Date / Time SANDRA Inhibitors Allergy Unknown Unknown Verified 09/05/23 17:51 hydrochlorothiazide Allergy Unknown Unknown Verified 09/05/23 17:51 lisinopril Allergy Unknown Unknown Verified 09/05/23 17:51 vancomycin Allergy Unknown Unknown Verified 09/05/23 17:51 zolpidem [From Ambien] AdvReac Severe Sleep Verified 09/05/23 17:51 walking and sleep driving Review of Systems Review of Systems: ROS unobtainable: Yes unobtainable due to medical condition PMFSH Past Medical History Medical History Afib Arthritis of ankle, right Atrial flutter Diarrhea Essential (primary) hypertension Glaucoma of both eyes Hearing loss Hydrocephalus with operating shunt IBS (irritable bowel syndrome) Insomnia Irritable bowel syndrome with diarrhea Mixed hyperlipidemia Neurofibromatosis BHAVANA (obstructive sleep apnea) Polycythemia Prediabetes SOB (shortness of breath) Wears glasses Surgical History Surgical History H/O cardiac radiofrequency ablation History of appendectomy History of breast surgery History of cholecystectomy History of hysterectomy History of tonsillectomy Hx of lung transplant S/P coronary artery stent placement Family History Family History Father Family history of chronic obstructive pulmonary disease Acute myocardial infarction Family history of heart disease in male family member before age 55 Mother Family history of coronary artery disease Cerebrovascular accident Other Diabetes mellitus Familial primary pulmonary hypertension Family history of arthritis Family history of blood dyscrasia Family history of cardiovascular disease Family history of malignant neoplasm Heart disease High cholesterol Hypertension Social History Social History Smoking status: Never smoker Second hand tobacco smoke exposure: No Alcohol intake: never Substance use: never Substance use type: does not use Lack
[2023-09-05 12:06] LABS: Lactic Acid Reflex 4.1 mmol/L (0.7-2.0)
[2023-09-05 12:08] LABS: Appearance Urine Turbid (Clear); Bacteria Urine 1+ /hpf; Bilirubin Urine 3+ (Negative); Blood Urine 2+ (Negative); Color Urine Dark Yellow (Yellow); Glucose Urine UA Negative (Negative); Hyaline Casts Urine Present /lpf; Ketones Urine Negative (Negative); Leukocyte Esterase Ur 2+ LEU/UL (Negative); Mucus Urine Present /lpf; Nitrate Urine Positive (Negative); Non Pathogenic Casts >20; Protein Urine Trace mg/dL (Negative); RBC Urine 51-100 /hpf (0-2); Specific Grav Ur 1.024 (1.001-1.035); Squamous Epithelial Cell Urine Moderate /hpf (Few); WBC Urine 51-100 /hpf
[2023-09-05 12:09] LABS: Alveolar/Arterial O2 Gradient 29.3 mmHg; Base Excess ABG 3.7 mEq/l (+/-2.0); Fractional Inspired Oxygen 21 %; HCO3 ABG 26.4 mEq/l (22.0-26.0); Oxygen Content ABG 20.6 %vol (16.0-22.0); Oxygen Saturation ABG 96.7 % (95.0-100.0); Oxyhemoglobin 94.3 % THb (90.0-100.0); PCO2 ABG 34.2 mmHg (35.0-45.0); PO2 ABG 79.5 mmHg (80.0-100.0); PO2 FiO2 Ratio Arterial Blood 3.79 %; Total Hemoglobin 15.5 g/dL (12.0-18.0)
[2023-09-05 12:10] LABS: Device ROOM AIR; Site Drawn LEFT BRACHIAL; pH ABG 7.505 (7.350-7.450)
[2023-09-05 12:10] LABS: Add Urine Microscopic? YES
--- NOTE | 2023-09-05 12:12 | PCRCNOTE ---
G drawn and analyzed late due to pt was a hard stick.
[2023-09-05 12:30] LABS: Troponin I 0.103 ng/mL (0.000-0.034)
--- NOTE | 2023-09-05 13:39 | PC.NURSE ---
Spoke with pts sister, Lynne, to give an update.
--- NOTE | 2023-09-05 13:54 | PM.IMHP ---
H&P: HPI History of Present Illness Date/Time: 09/05/23 13:54 Chief Complaint: altered mental status, sepsis Narrative: This is a 72-year-old female patient who was found down covered in stool with altered mental status after a well check was requested. Patient last spoke to her sister 3 days ago. Unknown down time or cause. There was a dog present in the home as well. Patient family reports the patient has been more more depressed recently has stopped taking medications for likely months and not going to follow-up appointments. Patient has a prior history of double lung transplant 2014 at [facility] and is supposed to be on anti rejection medications. The reason for lung transplant was neurofibromatosis with internal lesions pushing on the lungs. Patient herself will open eyes follow commands able to move all 4 extremities roughly equally but she is not answering most questions. She does give us her name but not where she is located or what year it is or how old she is. No obvious stroke deficits apparent at this time. Review of Systems Review of Systems: ROS unobtainable: Yes unobtainable due to mental status PMFSH Past Medical History Medical History Afib Arthritis of ankle, right Atrial flutter Diarrhea Essential (primary) hypertension Glaucoma of both eyes Hearing loss Hydrocephalus with operating shunt IBS (irritable bowel syndrome) Insomnia Irritable bowel syndrome with diarrhea Mixed hyperlipidemia Neurofibromatosis BHAVANA (obstructive sleep apnea) Polycythemia Prediabetes SOB (shortness of breath) Wears glasses Surgical History Surgical History H/O cardiac radiofrequency ablation History of appendectomy History of breast surgery History of cholecystectomy History of hysterectomy History of tonsillectomy Hx of lung transplant S/P coronary artery stent placement Family History Family History Father Family history of chronic obstructive pulmonary disease Acute myocardial infarction Family history of heart disease in male family member before age 55 Mother Family history of coronary artery disease Cerebrovascular accident Other Diabetes mellitus Familial primary pulmonary hypertension Family history of arthritis Family history of blood dyscrasia Family history of cardiovascular disease Family history of malignant neoplasm Heart disease High cholesterol Hypertension Social History Social History Smoking status: Never smoker Second hand tobacco smoke exposure: No Alcohol intake: never Substance use: never Substance use type: does not use Lack of Transportation: No Lack of Food: Sometimes True Current Housing: I Have Housing Concerned About Future Housing: No Difficulty Paying Gas/Electric Bills: No Difficulty Paying for Meds: No Currently Unemployed: No Education: High School Diploma/GED Difficulty w/ Childcare or Family Care: No Occupation/Education: retired Gender identity (if verbalized by the patient): Female Spiritual care concerns: No Meds Home Medications and Allergies Home Medications Medication Instructions Recorded Confirmed Type apixaban 5 mg tablet (Eliquis) 5 mg PO BID 11/03/19 06/04/23 History azathioprine 50 mg tablet 150 mg PO DAILY 11/03/19 06/04/23 History calcium carbonate 600 mg calcium 600 mg PO DAILY 11/03/19 06/04/23 History (1,500 mg) tablet (Calcium) cholecalciferol (vitamin D3) 50 2,000 unit PO DAILY 11/03/19 06/04/23 History mcg (2,000 unit) tablet prednisone 10 mg tablet 10 mg PO DAILY 11/03/19 06/04/23 History alendronate 70 mg tablet 70 mg PO WEEKLY #14 tabs 12/21/19 06/04/23 Rx aspirin 81 mg tablet,delayed 81 mg PO DAILY 12/05/20 06/04/23 History release (Adult As
[2023-09-05 14:36] LABS: Reflex Lactic Acid Yes or No Add Lactic
[2023-09-05] MEDS: LACTATED RINGERS 1,000 ML 125 ML IV CONT (14:51)
--- NOTE | 2023-09-05 15:17 | ADMGEN ---
This patient, Amrita Ovalle, was admitted to IMU Room 231-01 at 1505. Patient/family oriented to hospital policies and general routines including ID bracelet, bed and alarms, visiting hours, pain management, procedures, bathroom and other care routines, personal items, smoking policy, room service/diet, and visiting hours. Information on how to activate the Rapid Response Team has been discussed. Patient/Family are encouraged to report perceived risks to care and to ask questions if they do not understand what they are told or what they should do.
--- NOTE | 2023-09-05 15:18 | PC.NURSE ---
patient arrived to floor at 1505 via stretcher, two ER techs transported patient to 231. upon arrival I questioned why patient had hospital gloves on her hands and tape wrapped around her wrists keeping gloves on. I asked the techs why she had them on and they were unsure so I called down to ER and spoke to NEETA Dominguez RN who took care of patient and was told I forgot to take the gloves off before she came up to you, but she had feces on her hands and under her fingernails and we didn't want to get touched with her hands while cleaning her up. On arrival we removed gloves from the patients wrists and gave patient a full bath with soap and water.
[2023-09-05 15:22] LABS: Troponin I 0.079 ng/mL (0.000-0.034)
[2023-09-05 15:39] LABS: Hemoglobin A1C 5.6 % (<5.7)
[2023-09-05 15:55] LABS: Free T4 Free Thyroxine 1.48 ng/mL (0.78-2.19)
[2023-09-05 16:08] LABS: Total Triiodothyronine (T3) 0.59 NG/ML (0.97-1.69)
[2023-09-05 16:59] LABS: Glucose Point of Care 115 mg/dl (65-105)
[2023-09-05] MEDS: HYDROCORTISONE SODIUM SUCCINATE 100 MG/2 ML VIAL IV PUSH ×2 (17:13→21:26)
[2023-09-05] MEDS: DEXTROSE 5%/LACTATED RINGERS 1,000 ML 75 ML IV CONT (17:14)
[2023-09-05] MEDS: LIOTHYRONINE 10 MCG/ML IV PUSH (18:27)
[2023-09-05] MEDS: LEVOTHYROXINE SODIUM INJ 100 MCG/5 ML VIAL 200 MCG IV PUSH (18:30)
[2023-09-05 20:12] LABS: Glucose Point of Care 128 mg/dl (65-105)
[2023-09-05] MEDS: POTASSIUM CHLORIDE INJ 40 MEQ in SODIUM CHLORIDE 0.9% IV 500 ML 130 MEQ IVPB ×2 (20:21→21:23)
[2023-09-05 20:45] LABS: Lactic Acid 2.8 mmol/L (0.7-2.0)
[2023-09-05 20:56] LABS: Anion Gap 13 mmol/L (8-16); Blood Urea Nitrogen 88 mg/dL (7-17); Calcium 8.6 mg/dL (8.4-10.2); Carbon Dioxide 30 mmol/L (22-30); Chloride 112 mmol/L (98-107); Estimated CRCL calculation 19 ml/min; Estimated Glomerular Filt Rate 24; Glucose 139 mg/dL (65-110); Potassium 2.8 mmol/L (3.4-5.0); Sodium 155 mmol/L (137-145)
[2023-09-06] VITALS (12 sets, daily range): BP systolic 149–187; BP diastolic 75–95; PULSE 61–102; RESP 16–20; TEMP 36.4–37.1; O2SAT 96–100; BMI 22.6
[2023-09-06 00:34] LABS: Glucose Point of Care 125 mg/dl (65-105)
[2023-09-06 04:26] LABS: Glucose Point of Care 150 mg/dl (65-105)
[2023-09-06 04:48] LABS: Basophils Percent Auto 0.4 % (0.2-1.2); Hemoglobin 15.2 g/dL (12.0-15.0); Immature Granulocyte Absolute 0.08 K/mm3 (0.00-0.031); Lymphocytes Absolute Auto 0.47 K/mm3 (0.9-3.2); Lymphocytes Percent Auto 6.1 % (18.3-44.2); Mean Corpuscular HGB Conc 30.4 g/dl (32-36); Mean Corpuscular Hemoglobin 26.1 pg (26-34); Mean Corpuscular Volume 85.8 fl (80-100); Monocytes Absolute Auto 0.5 K/mm3 (0.1-0.6); Neutrophils Absolute Auto 6.6 K/mm3 (1.3-6.7); Neutrophils Percent Auto 85.5 % (45.5-73.1); Nucleated Red Blood Cells Absolute Auto 0.1 K/mm3 (0.0-0.012); Nucleated Red Blood Cells Perc 0.9 % (0.0-0.2); Platelet Count Result 123 k/mm3 (150-375); Red Blood Count 5.83 M/mm3 (4.2-5.4); Red Cell Distribution Width 18.2 % (11.5-14.5); White Blood Count 7.7 K/mm3 (4.5-10.0)
[2023-09-06 05:00] LABS: Alanine Aminotransferase 16 U/L (6-35); Albumin Level 3.2 g/dL (3.5-5.1); Alkaline Phosphatase 61 U/L (38-126); Anion Gap 9 mmol/L (8-16); Aspartate Amino Transferase 29 U/L (14-36); Bilirubin,Total 1.1 mg/dL (0.2-1.3); Blood Urea Nitrogen 80 mg/dL (7-17); Calcium 8.6 mg/dL (8.4-10.2); Carbon Dioxide 31 mmol/L (22-30); Chloride 116 mmol/L (98-107); Estimated CRCL calculation 25 ml/min; Estimated Glomerular Filt Rate 34; Glucose 160 mg/dL (65-110); Potassium 3.4 mmol/L (3.4-5.0); Sodium 156 mmol/L (137-145)
[2023-09-06] MEDS: LEVOTHYROXINE SODIUM INJ 100 MCG/5 ML VIAL 50 MCG IV PUSH (06:26)
[2023-09-06] MEDS: HYDROCORTISONE SODIUM SUCCINATE 100 MG/2 ML VIAL IV PUSH ×3 (06:26→21:52)
--- NOTE | 2023-09-06 08:26 | PCSTNOTE ---
Attempted to do Modified Barium Swallow (MBS) however nursing staff reported patient made no attempt to awaken or respond when they were moving her and doing patient care. Will check on patient in the afternoon to see if she is more awake and able to participate in MBS.
[2023-09-06 08:43] LABS: Glucose Point of Care 170 mg/dl (65-105)
[2023-09-06] MEDS: DEXTROSE 5% 1,000 ML 1,000 ML 100 ML IV CONT ×2 (10:43→21:50)
--- NOTE | 2023-09-06 12:12 | PCSTNOTE ---
Therapist spoke with RN, Malgorzata, who reported patient is not arousing well and to not attempt Modified Barium Swallow study today but to check in the morning and see if patient better able to participate. Dr. Elizalde notified.
[2023-09-06 12:13] LABS: Glucose Point of Care 177 mg/dl (65-105)
--- NOTE | 2023-09-06 14:17 | PM.IMPN ---
Progress Note: A&P Assessment and Plan (1) Sepsis: Code(s): A41.9 - Sepsis, unspecified organism Status: Acute (2) Altered mental status: Code(s): R41.82 - Altered mental status, unspecified Status: Acute (3) NO (acute kidney injury): Code(s): N17.9 - Acute kidney failure, unspecified Status: Acute (4) UTI (urinary tract infection): Code(s): N39.0 - Urinary tract infection, site not specified Status: Acute (5) Hypernatremia: Code(s): E87.0 - Hyperosmolality and hypernatremia Status: Acute (6) Alteration of body temperature: Code(s): R68.89 - Other general symptoms and signs Status: Acute (7) Dehydration: Code(s): E86.0 - Dehydration Status: Acute (8) Type 2 diabetes mellitus without complication, with no history of insulin use: Code(s): E11.9 - Type 2 diabetes mellitus without complications Status: Acute (9) BHAVANA on CPAP: Code(s): G47.33 - Obstructive sleep apnea (adult) (pediatric); Z99.89 - Dependence on other enabling machines and devices Status: Acute (10) Essential (primary) hypertension: Code(s): I10 - Essential (primary) hypertension Status: Acute (11) Lung transplant recipient: Code(s): Z94.2 - Lung transplant status Status: Acute (12) Cardiac dysrhythmia: Code(s): I49.9 - Cardiac arrhythmia, unspecified Status: Acute Plan 72-year-old female was found down covered in stool with altered mental status last spoken 3 days prior to admission. At the seized duct present at home as well. Or depressed leg lately. Stop taking a medication likely for months. Last PCP visit 05/2023. History of lung transplant 2014 at [place] and on anti-rejection medication history of neurofibromatosis Acute encephalopathy CT head is negative except for chronic bilateral lacunar infarction. Nonfocal neuro exam. MRI brain to further evaluate likely related to sepsis Severe sepsis with most likely source UTI Dysphagia likely due to encephalopathy. NG placed for oral medication NO with creatinine of 3 continue to improve with IV hydration. Baseline 0.7 Lactic acidosis of initial lactic acid of 4 IV fluid resuscitation done in the ER UTI ceftriaxone follow urine culture Hypothermia likely due to sepsis improved Severe dehydration hemoglobin 18.6 hematocrit 60.2 suggestive of hemoconcentration. This has improved Type 2 diabetes monitor Accu-Cheks SSI BHAVANA on CPAP auto PAP to continue here Hypertension chronic steroid therapy immunosuppressed status Hypothyroidism TSH is mildly elevated. Switch to IV levothyroxine here Thrombocytopenia mild DVT prophylaxis Lovenox Code status full code Subjective Date/time seen: 09/06/23 14:17 Interval history: patient a bit more awake than what is charted. She tells me her name and stays she is in the hospital. She follows some commands. Discussed with nursing staff labs reviewed chart review Review of Systems Review of Systems: ROS unobtainable: Yes unobtainable due to mental status Exam Narrative: GENERAL: Chronically ill-appearing awake follow some commands confused HEAD: Normocephalic, atraumatic. EYES: PERRL and EOMI. ENT: Dry mucous membranes. CHEST: Clear to auscultation. No respiratory distress. HEART: Regular rate and rhythm. Normal peripheral pulses. ABDOMEN: Soft, nontender, nondistended. EXTREMITIES: Normal range of motion. No edema. SKIN: Cool, dry, neurofibromas covering body. NEURO: Patient awake and oriented to self only. Moves all 4 extremities and follows simple commands. PSYCH: , Objective Data Vital Signs Vital Signs: Vital Signs - 24 hr 09/05/23 14:55 09/05/23 15:30 09/05/23 16:00 Temperature 99.7 F H 99.2 F 97.7 F Pulse Rate 99 95 Respiratory Rate 19 16 Blood Pressure 140/75 Pulse Oximetry 98 98 Oxygen Delivery 09/05/23 16:00 09/05/23 16:00 09/05/23 18:00 Burgin
[2023-09-06 15:07] LABS: Anion Gap 6 mmol/L (8-16); Blood Urea Nitrogen 74 mg/dL (7-17); Calcium 8.6 mg/dL (8.4-10.2); Carbon Dioxide 31 mmol/L (22-30); Chloride 117 mmol/L (98-107); Estimated CRCL calculation 37 ml/min; Estimated Glomerular Filt Rate 55; Glucose 193 mg/dL (65-110); Potassium 2.9 mmol/L (3.4-5.0); Sodium 154 mmol/L (137-145)
[2023-09-06 15:08] LABS: Lactic Acid Reflex 2.3 mmol/L (0.7-2.0)
[2023-09-06] MEDS: hydrALAZINE HCL 20 MG/ML VIAL 10 MG IV PUSH (15:55)
[2023-09-06] MEDS: amLODIPine BESYLATE 5 MG TABLET 10 MG PO (16:18)
[2023-09-06] MEDS: PARoxetine 20 MG TABLET PO (16:19)
[2023-09-06] MEDS: AZITHROMYCIN 250 MG TABLET 500 MG PO (16:19)
[2023-09-06] MEDS: ASPIRIN 81 MG ENTERIC TABLET PO (16:20)
[2023-09-06 17:54] LABS: Reflex Lactic Acid Yes or No Add Lactic
[2023-09-06 18:04] LABS: Glucose Point of Care 171 mg/dl (65-105)
[2023-09-06 19:40] LABS: Lactic Acid 2.3 mmol/L (0.7-2.0)
[2023-09-06 19:57] LABS: Glucose Point of Care 177 mg/dl (65-105)
[2023-09-06] MEDS: POTASSIUM CHLORIDE 20 MEQ PACKET (FOR LIQUID) 40 MEQ FEED TUBE (20:06)
[2023-09-06] MEDS: ONDANSETRON INJ 4 MG/2 ML VIAL IV PUSH (20:17)
--- NOTE | 2023-09-06 23:58 | PM.EVENT ---
Event Note Event Note Event Note: I was notified of positive blood cultures Gram-positive cocci in clusters from aerobic bottles only 2 of 2. Patient is on ceftriaxone currently. Listed allergy vancomycin with unknown reaction. Will await culture and sensitivity for further treatment at this time. Consult placed for Infectious Disease pharmacist.
[2023-09-07] VITALS (16 sets, daily range): BP systolic 146–172; BP diastolic 80–90; PULSE 70–105; RESP 14–20; TEMP 36.3–37.3; O2SAT 95–97
[2023-09-07] MEDS: hydrALAZINE HCL 20 MG/ML VIAL 10 MG IV PUSH (00:49)
[2023-09-07 04:06] LABS: Glucose Point of Care 177 mg/dl (65-105)
[2023-09-07 05:12] LABS: Basophils Percent Auto 0.2 % (0.2-1.2); Hematocrit 45.2 % (37.0-47.0); Hemoglobin 13.7 g/dL (12.0-15.0); Immature Granulocyte Absolute 0.12 K/mm3 (0.00-0.031); Immature Granulocyte Percent A 1.3 % (0-0.5); Immature Platelet Fraction Pct 8.1 % (0.9-11.2); Lymphocytes Absolute Auto 0.45 K/mm3 (0.9-3.2); Lymphocytes Percent Auto 4.7 % (18.3-44.2); Mean Corpuscular HGB Conc 30.3 g/dl (32-36); Mean Corpuscular Hemoglobin 25.8 pg (26-34); Mean Platelet Volume 12.1 fl (7.4-10.4); Monocytes Absolute Auto 0.8 K/mm3 (0.1-0.6); Monocytes Percent Auto 8.4 % (2.6-8.5); Neutrophils Absolute Auto 8.2 K/mm3 (1.3-6.7); Neutrophils Percent Auto 85.4 % (45.5-73.1); Nucleated Red Blood Cells Absolute Auto 0.1 K/mm3 (0.0-0.012); Nucleated Red Blood Cells Perc 1.5 % (0.0-0.2); Platelet Count Result 96 k/mm3 (150-375); Red Blood Count 5.32 M/mm3 (4.2-5.4); Red Cell Distribution Width 17.3 % (11.5-14.5); White Blood Count 9.6 K/mm3 (4.5-10.0)
[2023-09-07 05:22] LABS: Alanine Aminotransferase 21 U/L (6-35); Alkaline Phosphatase 54 U/L (38-126); Anion Gap 6 mmol/L (8-16); Aspartate Amino Transferase 35 U/L (14-36); Bilirubin,Total 1.1 mg/dL (0.2-1.3); Blood Urea Nitrogen 61 mg/dL (7-17); Calcium 8.3 mg/dL (8.4-10.2); Carbon Dioxide 31 mmol/L (22-30); Chloride 112 mmol/L (98-107); Estimated CRCL calculation 37 ml/min; Estimated Glomerular Filt Rate 55; Glucose 154 mg/dL (65-110); Magnesium 1.9 mg/dL (1.6-2.3); Potassium 3.1 mmol/L (3.4-5.0); Sodium 149 mmol/L (137-145)
[2023-09-07] MEDS: LEVOTHYROXINE SODIUM 100 MCG TABLET PO (06:01)
[2023-09-07] MEDS: HYDROCORTISONE SODIUM SUCCINATE 100 MG/2 ML VIAL IV PUSH (06:01)
[2023-09-07 07:45] LABS: Glucose Point of Care 172 mg/dl (65-105)
--- NOTE | 2023-09-07 08:06 | PHA.ABX.ID ---
Pharmacy ID Consult - Stewardship Interventions Type of Interventions: Dose Change, Escalation, Labs - micro, Labs - non micro Pharmacy ID Note: Subjective Pharmacy was consulted by Derick Knight regarding infectious diseases for Amrita Ovalle. Amrita Ovalle is a 72 year old F with concerns regarding Oral de-escalation. Background The patient is currently receiving Ceftriaxone Day 3. The patient's PMH includes much of what is present in provider notes, but pertinently patient has a history of being a lung transplant patient per provider being on a regimen of immunosuppressants. Patient was found down as well, but CK was <20 when tested. Patient has allergy noted on profile for vancomycin. Patient is afebrile Microbiology 09/05/23 12:15 Blood Blood Culture - Preliminary Gram positive cocci cluster is 09/05/23 12:14 Blood Blood Culture - Preliminary Gram positive cocci cluster is 09/05/23 11:44 Unspecified Urine Urine Culture - Preliminary Gram negative bacilli isolated Assessment/Recommendation/Discussion Spoke with patient's current provider with consulting provider's service. Patient is noted to have gram positive cocci in aerobic bottle in each blood culture set. While there is concern that this may be a contaminant and not true infection given the patient is afebrile and without leukocytosis despite being on high dose hydrocortisone IV (now stopped). Given the patient's history of transplant and concern of immunosuppression, daptomycin (~8 mg/kg) 500 mg q24h IV was started to target the GPC in BCX. Repeat BCX ordered for prior to the 09/05 cultures. CK ordered twice weekly - next CK level August. Of note, patient has GNR in UCX, pending ID and sensitivity. Ceftriaxone on board for the management, in case of disseminated infection, dose increased to 2g daily. Will continue to follow as more information comes to light. Please reach out if more information comes to light. Thank you for the interesting consult. Carlos Eduardo Haney, PharmD Infectious Disease/Antimicrobial Stewardship Pharmacist 09/07/23; 0806 WBC 9.6 K/mm3 (4.5-10.0) 09/07/23 04:42 Creatinine 1.00 mg/dL (0.7-1.0) 09/07/23 04:42 Estim Creat Clear Calc 37 ml/min 09/07/23 04:42
[2023-09-07] MEDS: POTASSIUM CHLORIDE 20 MEQ PACKET (FOR LIQUID) 40 MEQ FEED TUBE ×2 (08:43→13:48)
[2023-09-07] MEDS: ASPIRIN 81 MG ENTERIC TABLET PO (08:45)
[2023-09-07] MEDS: PARoxetine 20 MG TABLET PO (08:45)
[2023-09-07] MEDS: CALCIUM CARBONATE (OSCAL) 500 MG TABLET PO (08:45)
[2023-09-07] MEDS: CHOLECALCIFEROL 1,000 UNITS TABLET 2000 UNITS PO (08:46)
[2023-09-07] MEDS: amLODIPine BESYLATE 5 MG TABLET 10 MG PO (08:46)
[2023-09-07] MEDS: DEXTROSE 5% 1,000 ML 1,000 ML 100 ML IV CONT ×2 (08:47→21:53)
[2023-09-07] MEDS: DAPTOmycin 500 MG in SODIUM CHLORIDE 0.9% IV 50 ML 100 MG IVPB (08:50)
[2023-09-07] MEDS: PANTOPRAZOLE SODIUM IV 40 MG VIAL IV PUSH (08:50)
[2023-09-07] MEDS: cefTRIAXone 2 GM/NS 100 ML 2 GM/100 ML BAG IVPB (08:54)
--- NOTE | 2023-09-07 09:01 | PCSTNOTE ---
Patient is not appropriate for Modified Barium Swallow at this time. Patient opened eyes but did not respond to therapist verbally or by following commands. Modified Barium Swallow order cancelled with Dr. Elizalde knowledge and permission. Therapist will remain in touch with nursing to determine when patient will be appropriate for evaluation.
[2023-09-07 09:22] LABS: Glucose Point of Care 125 mg/dl (65-105)
--- NOTE | 2023-09-07 11:58 | PM.IMPN ---
Progress Note: A&P Assessment and Plan (1) Sepsis: Code(s): A41.9 - Sepsis, unspecified organism Status: Acute (2) Altered mental status: Code(s): R41.82 - Altered mental status, unspecified Status: Acute (3) NO (acute kidney injury): Code(s): N17.9 - Acute kidney failure, unspecified Status: Acute (4) UTI (urinary tract infection): Code(s): N39.0 - Urinary tract infection, site not specified Status: Acute (5) Hypernatremia: Code(s): E87.0 - Hyperosmolality and hypernatremia Status: Acute (6) Alteration of body temperature: Code(s): R68.89 - Other general symptoms and signs Status: Acute (7) Dehydration: Code(s): E86.0 - Dehydration Status: Acute (8) Type 2 diabetes mellitus without complication, with no history of insulin use: Code(s): E11.9 - Type 2 diabetes mellitus without complications Status: Acute (9) BHAVANA on CPAP: Code(s): G47.33 - Obstructive sleep apnea (adult) (pediatric); Z99.89 - Dependence on other enabling machines and devices Status: Acute (10) Essential (primary) hypertension: Code(s): I10 - Essential (primary) hypertension Status: Acute (11) Lung transplant recipient: Code(s): Z94.2 - Lung transplant status Status: Acute (12) Cardiac dysrhythmia: Code(s): I49.9 - Cardiac arrhythmia, unspecified Status: Acute Plan 72-year-old female was found down covered in stool with altered mental status last spoken 3 days prior to admission. she Stopped taking a medication likely for months. Last PCP visit 05/2023. History of lung transplant 2014 at [facility] and on anti-rejection medication history of neurofibromatosis Acute encephalopathy CT head is negative except for chronic bilateral lacunar infarction. Nonfocal neuro exam. MRI brain negative for acute stroke. Likely related to sepsis Severe sepsis with most likely source UTI Dysphagia likely due to encephalopathy. NG placed for oral medication will start tube feeds NO with creatinine of 3 continue to improve with IV hydration. Baseline 0.7 resolved Lactic acidosis of initial lactic acid of 4 IV fluid resuscitation done in the ER UTI ceftriaxone follow urine culture will increase to 2 g daily Bacteremia Gram-positive cocci in clusters possible contamination. Repeat blood culture today. Vancomycin allergy and hence started on daptomycin Hypothermia likely due to sepsis improved Severe dehydration hemoglobin 18.6 hematocrit 60.2 suggestive of hemoconcentration. This has improved Type 2 diabetes monitor Accu-Cheks SSI BHAVANA on CPAP auto PAP to continue here Hypertension chronic steroid therapy immunosuppressed status . resume Imuran and prednisone Hypothyroidism TSH is mildly elevated. Switch to IV levothyroxine here Thrombocytopenia mild DVT prophylaxis Lovenox Code status full code Discussed with family Discussed with [facility] Transplant Team. accepted at [facility] for further treatment Subjective Date/time seen: 09/07/23 11:58 Interval history: Patient awake and answer some questions. Still remains confused. Discussed with transplant team at [facility] and accepted as transfer for further treatment. Review of Systems Review of Systems: ROS unobtainable: Yes unobtainable due to mental status Exam Narrative: GENERAL: Chronically ill-appearing awake follow some commands confused HEAD: Normocephalic, atraumatic. EYES: PERRL and EOMI. ENT: Dry mucous membranes. CHEST: Clear to auscultation. No respiratory distress. HEART: Regular rate and rhythm. Normal peripheral pulses. ABDOMEN: Soft, nontender, nondistended. EXTREMITIES: Normal range of motion. No edema. SKIN: Cool, dry, neurofibromas covering body. NEURO: Patient awake and oriented to self only. Moves all 4 extremities and follows simple commands. PSYCH: , Objective Data Vital Signs Vital Signs: Vital Signs - 24 hr
[2023-09-07 13:11] LABS: Glucose Point of Care 131 mg/dl (65-105)
[2023-09-07] MEDS: predniSONE 10 MG TABLET PO (13:49)
--- NOTE | 2023-09-07 14:46 | PCNFU ---
Nutrition Follow-Up Complete: Moderate protein calorie malnutrition related to inadequate intake and non compliance with care as evidenced by history and physical, poor po intake, significant weight loss of 20% x 9 months. Goal: Diet advanced - Not able to meet goal PO at this time Supplements ordered New goal: Tolerate tube feeding at goal rate Pt current nutrition is Tube feeding: Jevity 1.2 @ 10 ml/h to start. Nutrition recommendation: -Goal rate Jevity 1.2 @ 55 ml/h: 1450 kcal, 67 g protein, 976 ml free water. Flush 50 ml water q 4 hours: 1276 ml total water. -Advance by 10 ml q 4 hours until goal rate is reached Last recorded weight is 62.3 kg. Bowel Motility: +1 BM today 09/07 Labs Reviewed: Alb 3.0, Na 149, K+ 3.1, GFR 55, BUN 61, Glu 154 Meds Noted: Novolog, Zofran, prednisone Skin: No pressure related breakdown Additional Notes: Pt was not appropriate for swallow study so NG was started for tube feedings.Ability to swallow will be re-evaluated when pt is alert enough. Monitor for diet order, intake, tolerance, wt, labs. Follow up in 3 days.
--- NOTE | 2023-09-07 14:54 | PCDIET ---
TUBE FEEDING RECOMMENDATIONS: Jevity 1.2 @ 55 ml/h goal rate: Advance by 10 ml q 4 hours until goal is reached. To provide 1450 kcal, 67 g protein, 976 ml free water. Flush 50 ml water q 4 hours. total water 1276 ml/day. Following
[2023-09-07 17:45] LABS: Glucose Point of Care 163 mg/dl (65-105)
--- NOTE | 2023-09-07 19:17 | PC.NURSE ---
[facility] reports pt was accepted into lung transplant unit by Dr. Amadou Romano.
[2023-09-07 19:57] LABS: Glucose Point of Care 144 mg/dl (65-105)
[2023-09-07 23:27] LABS: Glucose Point of Care 143 mg/dl (65-105)
[2023-09-08] VITALS (11 sets, daily range): BP systolic 124–157; BP diastolic 57–102; PULSE 66–107; RESP 17–20; TEMP 36.3–37.1; O2SAT 97–98
[2023-09-08 03:19] LABS: Glucose Point of Care 137 mg/dl (65-105)
[2023-09-08 03:49] LABS: Basophils Percent Auto 0.3 % (0.2-1.2); Eosinophils Percent Auto 0.1 % (0-4.4); Hematocrit 43.9 % (37.0-47.0); Hemoglobin 13.4 g/dL (12.0-15.0); Immature Granulocyte Percent A 1.1 % (0-0.5); Immature Platelet Fraction Pct 10.9 % (0.9-11.2); Lymphocytes Absolute Auto 0.57 K/mm3 (0.9-3.2); Lymphocytes Percent Auto 6.4 % (18.3-44.2); Mean Corpuscular HGB Conc 30.5 g/dl (32-36); Mean Corpuscular Hemoglobin 26.1 pg (26-34); Mean Corpuscular Volume 85.6 fl (80-100); Mean Platelet Volume 12.7 fl (7.4-10.4); Monocytes Percent Auto 11.7 % (2.6-8.5); Neutrophils Absolute Auto 7.2 K/mm3 (1.3-6.7); Neutrophils Percent Auto 80.4 % (45.5-73.1); Nucleated Red Blood Cells Absolute Auto 0.1 K/mm3 (0.0-0.012); Nucleated Red Blood Cells Perc 1.6 % (0.0-0.2); Platelet Count Result 61 k/mm3 (150-375); Red Blood Count 5.13 M/mm3 (4.2-5.4); Red Cell Distribution Width 17.2 % (11.5-14.5); White Blood Count 8.9 K/mm3 (4.5-10.0)
[2023-09-08 03:58] LABS: Alanine Aminotransferase 25 U/L (6-35); Albumin Level 3.1 g/dL (3.5-5.1); Alkaline Phosphatase 54 U/L (38-126); Anion Gap 7 mmol/L (8-16); Aspartate Amino Transferase 47 U/L (14-36); Bilirubin,Total 1.2 mg/dL (0.2-1.3); Blood Urea Nitrogen 35 mg/dL (7-17); Calcium 8.2 mg/dL (8.4-10.2); Carbon Dioxide 29 mmol/L (22-30); Chloride 108 mmol/L (98-107); Estimated CRCL calculation 52 ml/min; Estimated Glomerular Filt Rate > 60; Glucose 142 mg/dL (65-110); Potassium 3.2 mmol/L (3.4-5.0); Sodium 144 mmol/L (137-145)
[2023-09-08 04:20] LABS: Platelet Estimate Decreased (Adequate)
[2023-09-08 04:21] LABS: Anisocytosis 1+ (NORMAL); Large Platelets Present; Poikilocytosis 1+ (NORMAL); Schistocytes None Seen (NORMAL)
[2023-09-08] MEDS: LEVOTHYROXINE SODIUM 100 MCG TABLET PO (06:10)
[2023-09-08 07:56] LABS: Glucose Point of Care 130 mg/dl (65-105)
[2023-09-08] MEDS: DEXTROSE 5% 1,000 ML 1,000 ML 100 ML IV CONT (08:27)
[2023-09-08] MEDS: DAPTOmycin 500 MG in SODIUM CHLORIDE 0.9% IV 50 ML 100 MG IVPB (08:28)
[2023-09-08] MEDS: PANTOPRAZOLE SODIUM IV 40 MG VIAL IV PUSH (08:32)
[2023-09-08] MEDS: cefTRIAXone 2 GM/NS 100 ML 2 GM/100 ML BAG IVPB (08:33)
[2023-09-08] MEDS: CALCIUM CARBONATE (OSCAL) 500 MG TABLET PO (08:58)
[2023-09-08] MEDS: AZITHROMYCIN 250 MG TABLET 500 MG PO (08:58)
[2023-09-08] MEDS: predniSONE 10 MG TABLET PO (08:58)
[2023-09-08] MEDS: ASPIRIN 81 MG ENTERIC TABLET PO (08:58)
[2023-09-08] MEDS: PARoxetine 20 MG TABLET PO (08:59)
[2023-09-08] MEDS: amLODIPine BESYLATE 5 MG TABLET 10 MG PO (08:59)
[2023-09-08] MEDS: CHOLECALCIFEROL 1,000 UNITS TABLET 2000 UNITS PO (08:59)
--- NOTE | 2023-09-08 11:13 | PHA.ABX.ID ---
Pharmacy ID Consult - Stewardship Interventions Type of Interventions: De-escalation Pharmacy ID Note: Initial note copied below line Update: Daptomycin and Ceftriaxone Day 2 / 4. Blood culture ID returned and shows common skin bacteria. Spoke with current Hospitalist Provider. discontinue Daptomycin and continue ceftriaxone as ID for the GNR in the UCX from 09/05 returns. Repeat blood cultures from 09/07 pending. WBC 8.9. Will continue to follow as more information comes to light. Please reach out if more information comes to light. Microbiology 09/05/23 12:14 Blood Blood Culture - Preliminary Staphylococcus epidermidis 09/05/23 11:44 Unspecified Urine Urine Culture - Preliminary Gram negative bacilli isolated 09/05/23 12:15 Blood Blood Culture - Final Micrococcus luteus Pharmacy ID Consult - Stewardship Interventions Type of Interventions: Dose Change, Escalation, Labs - micro, Labs - non micro Pharmacy ID Note: Subjective Pharmacy was consulted by Derick Knight regarding infectious diseases for Amrita Ovalle. Amrita Ovalle is a 72 year old F with concerns regarding Oral de-escalation. Background The patient is currently receiving Ceftriaxone Day 3. The patient's PMH includes much of what is present in provider notes, but pertinently patient has a history of being a lung transplant patient per provider being on a regimen of immunosuppressants. Patient was found down as well, but CK was <20 when tested. Patient has allergy noted on profile for vancomycin. Patient is afebrile Microbiology 09/05/23 12:15 Blood Blood Culture - Preliminary Gram positive cocci cluster is 09/05/23 12:14 Blood Blood Culture - Preliminary Gram positive cocci cluster is 09/05/23 11:44 Unspecified Urine Urine Culture - Preliminary Gram negative bacilli isolated Assessment/Recommendation/Discussion Spoke with patient's current provider with consulting provider's service. Patient is noted to have gram positive cocci in aerobic bottle in each blood culture set. While there is concern that this may be a contaminant and not true infection given the patient is afebrile and without leukocytosis despite being on high dose hydrocortisone IV (now stopped). Given the patient's history of transplant and concern of immunosuppression, daptomycin (~8 mg/kg) 500 mg q24h IV was started to target the GPC in BCX. Repeat BCX ordered for prior to the 09/05 cultures. CK ordered twice weekly - next CK level August. Of note, patient has GNR in UCX, pending ID and sensitivity. Ceftriaxone on board for the management, in case of disseminated infection, dose increased to 2g daily. Will continue to follow as more information comes to light. Please reach out if more information comes to light. Thank you for the interesting consult. Carlos Eduardo Haney, [place] Infectious Disease/Antimicrobial Stewardship Pharmacist 09/07/23; 08 WBC 9.6 K/mm3 (4.5-10.0) 09/07/23 04:42 Creatinine 1.00 mg/dL (0.7-1.0) 09/07/23 04:42 Estim Creat Clear Calc 37 ml/min 09/07/23 04:42 This report may have been done utilizing a voice recognition system. Attempts have been made to correct errors. However, there may be uncorrected grammatical, spelling, and recognition errors present. Report Initialized date/time: Carlos Eduardo Haney PharmD 09/07/23836 Electronically signed by: Carlos Eduardo Haney PharmD 09/07/23 0837
[2023-09-08 12:31] LABS: Glucose Point of Care 143 mg/dl (65-105)
[2023-09-08 16:45] LABS: Glucose Point of Care 181 mg/dl (65-105)
--- NOTE | 2023-09-08 16:53 | PM.DS ---
DS: Admitting Diagnosis Discharge Date 09/08/23 Admitting Diagnosis confusion DS: Discharge Diagnosis Discharge Diagnosis (1) Altered mental status: Code(s): R41.82 - Altered mental status, unspecified Status: Acute (2) Sepsis: Code(s): A41.9 - Sepsis, unspecified organism Status: Acute (3) NO (acute kidney injury): Code(s): N17.9 - Acute kidney failure, unspecified Status: Acute (4) Acute UTI: Code(s): N39.0 - Urinary tract infection, site not specified Status: Acute (5) Lung transplant recipient: Code(s): Z94.2 - Lung transplant status Status: Acute DS: Summary Hospital Course Hospital Course: 72F w/ PMH a fib on eliquis, HTN, s/p lung transplant d/t NF on immunosuppresive therapy, hydrocephalus w/ operating shunt, irritable bowel syndrome, HLD, neurofibromatosis, BHAVANA, prediabetes, depression, presented via EMS as she was found down at home covered in stool. Last known well 3 days prior to admission. She had stopped taking her medications for a few months per the family. A dog was found at the home as well. She apparently is more depressed. Her acute encephalopathy is likely 2/2 to UTI with gram negative rods with sepsis. She is on day #2 of ceftriaxone, daptomycin dc'ed today. on 09/05 blood cultures growing staph epidermis in bottle #1 and micrococcus luteus in bottle #2, likely contaminant and repeat cultures on 09/07 pending [address]D. Head CT and MRI brain negative for acute stroke. Dysphagia - likely 2/2 to encephalopathy, she has been placed on TF, at goal now NO - 2/2 to hypovolemia, resolved s/p resuscitation hypothermia - resolved hypothyroidism - levothyroxine switched to IV On 09/08 she continues to have encephalopathy and is in serious but stable condition for transfer to [place] for higher level of care with her transplant team. we appreciate their assistance full code. More than 30 minutes spent on discharge planning and documentation. Time Spent with Patient Time attestation: Total time spent providing and/or coordinating discharge services: Exam Const: General: comfortable and no acute distress Eyes: Pupils: Equal, round and reactive pupils present Resp: Auscultation: clear to auscultation bilaterally Cardio: Rate: regular rate Rhythm: regular rhythm GI: Inspection: non-distended GI Palp: Yes Soft to palpation and No Tenderness to palpation present (GI) Auscultation: normal bowel sounds : Bimanual exam- vagina & uterus: bladder normal to palpation Urinary Catheter: Urinary Catheter: patent and draining and urine clear Skin: Lesions: lesion noted (NF lesions) Psych: Other: confused DS: Data Data Completed and Pending Labs on day of discharge: Labs from last 24 hours 09/08/23 09/08/23 09/08/23 16:43 12:28 07:52 WBC RBC Hgb Hct MCV MCH MCHC RDW Plt Count MPV Immature Gran % (Auto) Neut % (Auto) Lymph % (Auto) Levy % (Auto) Eos % (Auto) Baso % (Auto) Lymph # (Auto) Levy # (Auto) Eos # (Auto) Baso # (Auto) Abs Immat Gran (auto) Absolute Neuts (auto) Absolute Nucleated RBC Nucleated RBC % Platelet Estimate Large Platelets % Immature Plt Fraction Poikilocytosis Anisocytosis Schistocytes Sodium Potassium Chloride Carbon Dioxide Anion Gap BUN Creatinine Estim Creat Clear Calc Estimated GFR Glucose POC Capillary Glucose 181 H 143 H 130 H Calcium Total Bilirubin AST ALT Alkaline Phosphatase Total Protein Albumin 09/08/23 09/08/23 09/07/23 03:33 03:17 23:25 WBC 8.9 RBC 5.13 Hgb 13.4 Hct 43.9 MCV 85.6 MCH 26.1 MCHC 30.5 L RDW 17.2 H Plt Count 61 L MPV 12.7 H Immature Gran % (Auto) 1.1 H Neut % (Auto) 80.4 H Lymph % (Auto) 6.4 L Levy % (Auto) 11.7 H Eos % (Auto)
[2023-09-08] MEDS: KCL 20 MEQ/SW 100 ML 100 ML 50 MEQ IVPB (17:15)
--- NOTE | 2023-09-08 17:17 | PC.NURSE ---
On 09/08/23, the student, Andria [facility], provided care and completed [facility] documentation on this patient. I have reviewed the student's documentation and agree with the findings.
[2023-09-08 19:04] LABS: Tacrolimus Prograf <1.0 mcg/L
[2023-09-09 06:31] LABS: Triiodothyronine T3 Free 4.8 pg/mL (2.3-4.2)
== END 2023-09-08 18:50 | disposition short-term general hospital (02) | DRG 871 ==
LOC: ANHED 14:06 → ANHIMU 14:49
PROVIDERS: Internal Medicine; Nurse Practitioner; Admitting Provider Internal Medicine; Emergency Provider Emergency Medicine; PCP Nurse Practitioner; Visit Provider General Practice
DX: A41.9 Sepsis, unspecified organism (principal); G93.41 Metabolic encephalopathy; N39.0 Urinary tract infection, site not specified; N17.9 Acute kidney failure, unspecified; E87.0 Hyperosmolality and hypernatremia; I48.20 Chronic atrial fibrillation, unspecified; I48.92 Unspecified atrial flutter; G91.9 Hydrocephalus, unspecified; Z94.2 Lung transplant status; D84.821 Immunodeficiency due to drugs; R65.20 Severe sepsis without septic shock; I10 Essential (primary) hypertension; D75.1 Secondary polycythemia; D69.6 Thrombocytopenia, unspecified; E86.0 Dehydration; E03.9 Hypothyroidism, unspecified; E78.2 Mixed hyperlipidemia; K58.9 Irritable bowel syndrome, unspecified; M19.071 Primary osteoarthritis, right ankle and foot; G47.00 Insomnia, unspecified; G47.33 Obstructive sleep apnea (adult) (pediatric); R13.10 Dysphagia, unspecified; R73.03 Prediabetes; H91.90 Unspecified hearing loss, unspecified ear; H40.9 Unspecified glaucoma; Q85.00 Neurofibromatosis, unspecified; Z95.5 Presence of coronary angioplasty implant and graft; Z98.2 Presence of cerebrospinal fluid drainage device; Z79.82 Long term (current) use of aspirin; Z79.52 Long term (current) use of systemic steroids
CPT/HCPCS: 36415; 36600; 70450; 70553; 71045; 80048; 80053; 80197; 81001; 82533; 82550; 82805; 82948; 83036; 83605; 83735; 84439; 84443; 84480; 84481; 84484; 85025; 85055; 85610; 85730; 87040; 87077; 87086; 87147; 87181; 87186; 93005; 96361; 96365; 99285; A9270; A9577; C9113; G0378; J0360; J0696; J0878; J1720; J2405; J3480; J7030; J7040; J7070; J7120; J7121; J7512